=== PATIENT | male | born 1975 | race Caucasian/White ===

== ENCOUNTER 2024-04-19 04:02 | Day surgery (SDC) | payer OTHER ==
[2024-04-19] VITALS (237 sets, daily range): BP systolic 77–149; BP diastolic 47–92
[~2024-04-19] VITALS: Ht 175.3 cm; Wt 81.8 kg
[2024-04-19] MEDS ORDERED: CYANOCOBALAMIN 500 MCG/TAB ( B12) PO PRN (07:30)
[2024-04-19] MEDS ORDERED: FAMOTIDINE 20 MG/TAB PO PRN (07:30)
[2024-04-19] MEDS ORDERED: SCOPOLAMINE 1.5 MG DIS TD PRN (07:30)
[2024-04-19] MEDS ORDERED: PANTOPRAZOLE SODIUM Sesquihydr 40 MG/TAB PO PRN (07:30)
[2024-04-19] MEDS ORDERED: cloNIDine HCL 0.1 MG/TAB PO PRN (07:30)
[2024-04-19] MEDS ORDERED: diazePAM 5 MG/TAB PO PRN ×2 (07:30→08:30)
[2024-04-19] MEDS ORDERED: ALBUTEROL SULFATE 2.5 MG VIAL IN PRN (07:30)
[2024-04-19] MEDS ORDERED: LACTATED RINGER'S 1,000 ML IV PRN ×3 (07:30→19:00)
[2024-04-19] MEDS ORDERED: ASCORBIC ACID 4,000 MG in SODIUM CHLORIDE 0.9% 1,000 ML IV SCH (08:00)
[2024-04-19 08:39] LABS: BASO% 0.7 % (0-3); EOS% 3.5 % (0-8); HEMATOCRIT 40.4 % (39.0-50.0); HEMOGLOBIN 13.4 g/dl (14.0-18.0); IMMATURE GRANULOCYTES 0.1 % (0.0-5.0); LYMPH% 36.1 % (15-41); MEAN CELL VOLUME 93.1 fL CALC (80.0-100.0); MEAN CORPUSCULAR HGB 30.9 pG CALC (26.0-32.0); MEAN CORPUSCULAR HGB CONC 33.2 g/dL CAL (32.0-36.0); MONO% 6.5 % (2-13); NEUT# 4.78 thou/uL (1.82-7.42); NEUT% 53.1 % (42-76); RED BLOOD COUNT 4.34 mill/uL (4.70-6.10)
[2024-04-19] MEDS ORDERED: ALBUTEROL SUL0.083 % IN (08:54)
[2024-04-19] MEDS ORDERED: LISINOPRIL20 M1 PO (08:55)
[2024-04-19] MEDS ORDERED: METOPROL TAR25 M1 PO (08:56)
[2024-04-19] MEDS ORDERED: NEXIUM40 M1 PO (08:57)
[2024-04-19] MEDS ORDERED: CRESTOR10 MG PO (08:57)
[2024-04-19] MEDS ORDERED: WELLBUTRIN150 M2 PO (08:58)
[2024-04-19] MEDS ORDERED: GABAPENTIN300 M2 PO (08:58)
[2024-04-19] MEDS ORDERED: CYMBALTA60 MG PO (08:59)
[2024-04-19] MEDS ORDERED: BAYER ASPIRIN E81 MG PO (08:59)
[2024-04-19] MEDS ORDERED: MELATONIN3 M1 PO (09:00)
[2024-04-19] MEDS ORDERED: B121000 MCG PO (09:01)
[2024-04-19] MEDS ORDERED: VITAMIN D32000 UNI2 PO (09:02)
[2024-04-19] MEDS ORDERED: SILDENAFIL PO (09:02)
[2024-04-19] MEDS ORDERED: ATIVAN0.5 MG PO (09:04)
[2024-04-19] MEDS ORDERED: TESTOST CYP100 MG/ML IM (09:04)
[2024-04-19 09:19] LABS: ALBUMIN 4.5 g/dL (3.2-5.0); BILIRUBIN, TOTAL 0.2 mg/dL (0.2-1.3); POTASSIUM 4.5 mmol/l (3.5-5.1); TOTAL PROTEIN 7.1 g/dL (6.3-8.2)
[2024-04-19] MEDS ORDERED: LIDOCAINE HCL 1% (10MG/ML) 100 MG/10 ML MDV VT PRN ×2 (09:30)
[2024-04-19] MEDS ORDERED: NALTREXONE HCL 50 MG/TAB VT PRN (09:30)
[2024-04-19] MEDS ORDERED: DEXAMETHASONE SODIUM PHOSPHATE PF 10 MG/ML SDV IV PRN ×2 (09:30→19:00)
[2024-04-19] MEDS ORDERED: PROPOFOL 10 MG/ML 100ML VIAL IV PRN (09:30)
[2024-04-19] MEDS ORDERED: POTASSIUM CHLORIDE 10 MEQ/50 ML BAG IV PRN (09:30)
[2024-04-19] MEDS ORDERED: MAGNESIUM SULFATE HEPTAHYDRATE 100 ML IV PRN (09:30)
[2024-04-19] MEDS ORDERED: cloNIDine HYDROCHLORIDE 100 MCG/ML 10 ML INJ IV PRN (09:30)
[2024-04-19] MEDS ORDERED: MIDAZOLAM HCL 2 MG/2 ML VIAL IV PRN (09:30)
[2024-04-19] MEDS ORDERED: ROCURONIUM BROMIDE 10 MG/ML 5ML VIAL IV PRN (09:30)
[2024-04-19] MEDS ORDERED: ONDANSETRON HCl 4 MG/2 ML SDV IV PRN ×3 (09:30→19:00)
[2024-04-19] MEDS ORDERED: STERILE WATER FOR IRRIGATION 1,000 ML BTL IR PRN (09:30)
[2024-04-19] MEDS ORDERED: THIAMINE HCL 100 MG/ML 2ML VIAL IV PRN (09:30)
[2024-04-19] MEDS ORDERED: cloNIDine HCL 0.1 MG/TAB VT PRN (09:30)
[2024-04-19] MEDS ORDERED: LIDOCAINE HCL 1% (10MG/ML) 100 MG/10 ML MDV IV PRN (09:30)
[2024-04-19] MEDS ORDERED: SUCCINYLCHOLINE CHLORIDE 20 MG/ML 10ML VIAL IV PRN (09:30)
[2024-04-19] MEDS ORDERED: diazePAM 5 MG/TAB VT PRN (09:30)
[2024-04-19] MEDS ORDERED: DiphenhydrAMINE HCL 50 MG/ML SDV IV PRN (09:30)
[2024-04-19] MEDS ORDERED: OCTREOTIDE ACETATE 100 MCG/VIAL SDV SC PRN (09:30)
[2024-04-19] MEDS ORDERED: PROPOFOL 100 ML IV PRN (09:30)
[2024-04-19] MEDS ORDERED: LABETALOL HCL 20 MG/ 4 ML CARTRG IV ONE (12:15)
[2024-04-19] MEDS ORDERED: CLONIDINE0.1 MG PO (15:02)
[2024-04-19] MEDS ORDERED: NALTREXONE50 MG PO (15:02)
[2024-04-19] MEDS ORDERED: KLONOPIN2 MG PO (15:03)
[2024-04-19] MEDS ORDERED: clonazePAM 1 MG/TAB PO PRN (16:35)
[2024-04-19] MEDS ORDERED: ACETAMINOPHEN 1,000 MG/100 ML VIAL IV PRN (19:00)
[2024-04-19] MEDS ORDERED: PROMETHAZINE HCL 25 MG in SODIUM CHLORIDE 0.9% 50 ML IV PRN (19:00)
[2024-04-19] MEDS ORDERED: KETOROLAC TROMETHAMINE 30 MG/ML SDV IV PRN (19:00)
[2024-04-19] MEDS ORDERED: PROMETHAZINE HCL 12.5 MG in SODIUM CHLORIDE 0.9% 50 ML IV PRN (19:00)
[2024-04-19] MEDS ORDERED: ACETAMINOPHEN 500 MG TAB PO PRN (19:00)
[2024-04-19] MEDS ORDERED: HALOPERIDOL LACTATE 5 MG/ML SDV IV PRN (19:00)
[2024-04-19] MEDS ORDERED: LORazepam 2 MG/ML IV PRN ×2 (19:00)
[2024-04-19] MEDS ORDERED: NICOTINE TRANSDERMAL 21 MG/PATCH TD SCH (19:10)
[2024-04-19] MEDS ORDERED: PATIENT' OWN MED CONTROLLED 1 EA DOSE IV PRN (21:00)
[2024-04-19] MEDS ORDERED: cloNIDine HCL 0.1 MG/TAB PO SCH (23:00)
[2024-04-20] MEDS ORDERED: cloNIDine HCL 0.1 MG/TAB PO PRN (04:00)
[2024-04-20] MEDS ORDERED: clonazePAM 1 MG/TAB PO PRN ×2 (04:00→08:00)
[2024-04-20 04:30] VITALS: BP 121/77
[2024-04-20 05:03] LABS: HEMATOCRIT 38.2 % (39.0-50.0); HEMOGLOBIN 13.1 g/dl (14.0-18.0); IMMATURE GRANULOCYTES 0.2 % (0.0-5.0); MEAN CELL VOLUME 91.4 fL CALC (80.0-100.0); MEAN CORPUSCULAR HGB 31.3 pG CALC (26.0-32.0); MEAN CORPUSCULAR HGB CONC 34.3 g/dL CAL (32.0-36.0); MONO% 0.8 % (2-13); NEUT# 10.12 thou/uL (1.82-7.42); RED BLOOD COUNT 4.18 mill/uL (4.70-6.10); RED CELL DISTRI WIDTH 13.7 % (11.5-15.5)
[2024-04-20 05:21] LABS: ALBUMIN 3.9 g/dL (3.2-5.0); MAGNESIUM 2.5 mg/dL (1.6-2.3); POTASSIUM 4.2 mmol/l (3.5-5.1); TOTAL PROTEIN 6.3 g/dL (6.3-8.2)
[2024-04-20 05:23] LABS: BILIRUBIN, TOTAL 0.4 mg/dL (0.2-1.3)
[2024-04-20] MEDS ORDERED: cloNIDine HCL 0.1 MG/TAB PO SCH ×2 (08:00→12:00)
[2024-04-20] MEDS ORDERED: PANTOPRAZOLE SODIUM Sesquihydr 40 MG/TAB PO SCH (08:00)
[2024-04-20] MEDS ORDERED: NALTREXONE HCL 50 MG/TAB PO SCH ×2 (08:00→12:00)
[2024-04-20] MEDS ORDERED: ACETAMINOPHEN 325 MG/TAB PO SCH (08:00)
[2024-04-20] MEDS ORDERED: Cholecalciferol 2,000 UNIT/TAB PO PRN (09:00)
[2024-04-20] MEDS ORDERED: MAGNESIUM OXIDE 400 MG/TAB PO PRN (09:00)
[2024-04-20] MEDS ORDERED: ACETAMINOPHEN 500 MG TAB PO PRN (09:00)
[2024-04-20 11:19] VITALS: BP 90/42
[2024-04-20 12:12] VITALS: BP 90/42
== END 2024-04-20 16:28 | disposition home or self-care (01) | DRG 897 ==
LOC: ANR 04:02 → MS2 04:03 → ANR 08:00 → MS2 18:26 → ANR 04-20 16:28
PROVIDERS: ATTEND Anesthesiology Critical Care Medicine
DX: F11.20 Opioid dependence, uncomplicated (principal)
CPT/HCPCS: J0131; J1100; J2354; J3475